=== PATIENT | female | born 1960 | race Caucasian/White ===

== ENCOUNTER 2019-03-09 11:15 | Emergency (ER) | payer OTHER, SELFPAY ==
[2019-03-09 11:28] VITALS: BP 160/88; PULSE 64; RESP 16; O2SAT 99
--- NOTE | 2019-03-09 11:40 | DI.CT_ITS ---
EXAM: CT BRAIN AND NECK CTA CLINICAL HISTORY: neck pain, tingling down L arm, no trauma, r/o dis. TECHNIQUE: Axial CT angiography was performed with multi-slice acquisition and multi-planar and/or 3 D reconstructions. COMPARISON: No exams were available for comparison FINDINGS: A CTA neck: The examination was carried out according to the usual protocol. The common carotid, inte rnal and external carotid arteries are intact. There is no evidence significant stenosis. Note is ma de of degenerative changes involving the cervical spine. CTA of the brain: The anterior, middle and posterior cerebral arteries appear intact. The vertebral basilar system is unremarkable. There is no evidence of an aneurysm. There is no evidence of stenos is.
--- NOTE | 2019-03-09 11:41 | DI.RAD_ITS ---
EXAM: XR CHEST 2V PA AND LATERAL INDICATION: left neck and shoulder pain. COMPARISON: No exams were available for comparison TECHNIQUE: 2D digital imaging was performed. FINDINGS: The lungs are well expanded and free of infiltrate. There is no pleural effusion. The cardiovascular structures are intact. IMPRESSION: No evidence of acute cardiopulmonary disease.
[2019-03-09] MEDS: Lidocaine 5% Patch 1 PATCH TP (11:53)
[2019-03-09] MEDS: Acetaminophen 500 MG TAB 1000 MG PO (11:53)
[2019-03-09] MEDS: Ibuprofen 800 MG TAB PO (11:53)
--- NOTE | 2019-03-09 11:57 | W.ED.GENAD ---
Discharge Plan Disposition Patient Disposition: HOME Condition: Good Discharge Details Chief Complaint: Nk/Back Pain Clinical Impression: Cervicalgia, Muscle spasm, Hand tingling Primary Care Provider: Shanell Miller ED Provider: Steven Hernandez Home Meds and New Rx's Prescriptions: New acetaminophen [Mapap Extra Strength] 500 MG tablet 1,000 mg PO Q6H 5 Days Qty: 60 RF: 0 lidocaine [Lidoderm] 1 PATCH patch 1 patch Topical Q24H Qty: 4 RF: 0 ibuprofen [Motrin IB] 200 MG tablet 600 mg PO Q6H 5 Days Qty: 60 RF: 0 gabapentin [Neurontin] 300 MG capsule 300 mg PO TID Qty: 90 RF: 0 No Action atorvastatin 20 MG tablet 20 mg PO DAILY RF: 0 escitalopram oxalate [Lexapro] 20 MG tablet 20 mg PO DAILY RF: 0 Discharge Instructions Instructions: Muscle Spasm (ED), Neck Pain (ED) Additional Instructions: At this time there is no concerning life-threatening etiology noted on the CT scan. There is a small amount of compression noted on the cervical nerves. This may be improved with the gabapentin. Please continue to take the Tylenol Motrin and Lidoderm patch. Please follow-up with your primary care provider in regards to this for potential reassessment of your cervical spine. If you notice any worsening of your symptoms, or any new symptoms such as vomiting, diarrhea, fever, chills, shortness of breath, chest pain, numbness, weakness, or fainting , please return immediately to the emergency department for reevaluation. Please follow up with your primary care provider as soon as possible for reassessment and reevaluation. As always, it was a pleasure participating in your medical care today. Referrals: Shanell Miller [Primary Care Provider] - Medical Decision Making This is a 58-year-old female with a past medical history of high cholesterol, previous smoking, a family history of cardiac disease only in her grandparents who presents today for evaluation of left neck pain. Is been present for the last week, slightly worsened with movement. Is very atypical for her. She denies any trauma, specific event that caused the symptoms, or other atypical etiology. She also has notable tingling and slight numbness in her left arm that occurred just this morning. She denies any headache or vision changes. She denies any chest pain. Physical exam is notably unremarkable with no bruits, her neurovascular abnormalities. At this time signs and symptoms are slightly atypical, differential does include atypical and unlikely ACS, muscle strain or spasm, also vertebral artery dissection or carotid artery dissection. Her neuro components are certainly atypical, stroke is on the differential but unlikely. We will get a CTA of the head neck for further assessment, treat the patient's pain and reassess. 3 PM Reassessment patient is feeling much better after therapy. She continues to have mild intermittent tingling, but no significant neurologic deficit or evidence of decrease in two-point discrimination. Laboratory work-up is returned benign, troponin and EKG are unremarkable. Chest x-ray is negative for acute process and CTA and CT of the head neck is negative for acute process. Dr. Lee does state that there is mild degeneration noted on C5 and 6 and C6 and 7 with mild arthritis. This may be causing mild compression on the peripheral nerves. With no evidence of dissection, no evidence of atypical ACS, I feel that the patient be safely discharged home. No signs of stroke noted on CT scan. And signs and symptoms are inconsistent with acute infarct. Patient will be discharged home with NSAIDs, Lidoderm patch, gabapentin. Recommended close follow-up with her primary care provider, and potential outpatient neurology follow-up for nerve conduction studies and reassessment. I have extensively reviewed the treatment plan and discharge instructions with the patient and their family. I have addressed all patient concerns at this time. The patient and family was made aware of what symptoms to monitor for that would warrant a return to the emergency department. Discussed the plan with the patient and family, they demonstrate verbal understanding and agreement with our assessment and plan at this time. EKG 11: 45 Rate 63, intervals normal, sinus rhythm, no significant ST elevations or depressions, no T wave inversions. There is a Q wave in lead III. No prior EKG for comparison. No evidence of STEMI FINDINGS: A CTA neck: The examination was carried out according to the usual protocol. The common carotid, internal and external carotid arteries are intact. There is no evidence significant stenosis. Note is made of degenerative changes involving the cervical spine. CTA of the brain: The anterior, middle and posterior cerebral arteries appear intact. The vertebral basilar system is unremarkable. There is no evidence of an aneurysm. There is no evidence of stenosis. FINDINGS: The lungs are well expanded and free of infiltrate. There is no pleural effusion. The cardiovascular structures are intact. IMPRESSION: No evidence of acute cardiopulmonary disease. HPI General Date/Time Provider Initiated Documentation: 03/09/19 11:29. HPI Narrative: 58-year-old female with past medical history of high cholesterol, previous tobacco abuse, for which she quit greater than 5 years ago who presents today for evaluation of left neck pain. Patient states that for the last week she has had mild pain and achiness in her left neck, however this morning it suddenly became worse and she developed burning down her left arm with some mild achiness. Symptoms seem to be made slightly worse by moving the neck in any direction, improved by nothing including NSAIDs. She denies any traumatic event, or significant activity that brought it on initially. She denies any chest pain, shortness of breath, chest tightness, headache, vision changes, numbness tingling or weakness. She denies any previous history of Marfan syndrome, Stephania-Danlos syndrome, polycystic kidney disease, or aneurysm. She denies any previous episodes like this. She has no other complaints at this time. No other modifying factors. Related Data Home Medications Medication Instructions Recorded Confirmed atorvastatin 20 mg PO DAILY tab-cap 09/30/14 03/09/19 escitalopram oxalate [Lexapro] 20 mg PO DAILY 11/03/16 11/03/16 acetaminophen [Mapap Extra 1,000 mg PO Q6H 5 Days #60 tab 03/09/19 Strength] gabapentin [Neurontin] 300 mg PO TID #90 cap 03/09/19 ibuprofen [Motrin Ib] 600 mg PO Q6H 5 Days #60 tab 03/09/19 lidocaine [Lidoderm] 1 patch TOPICAL Q24H #4 patch 03/09/19 Previous Rx's Medication Instructions Recorded acetaminophen [Mapap Extra 1,000 mg PO Q6H 5 Days #60 tab 03/09/19 Strength] gabapentin [Neurontin] 300 mg PO TID #90 cap 03/09/19 ibuprofen [Motrin Ib] 600 mg PO Q6H 5 Days #60 tab 03/09/19 lidocaine [Lidoderm] 1 patch TOPICAL Q24H #4 patch 03/09/19 Allergies Allergy/AdvReac Type Severity Reaction Status Date / Time Penicillins Allergy hives Unverified 03/09/19 11:32 General Stated Complaint: GenMedical ELISSA: 3 Review of Systems Review of Systems ROS Unobtainable: All systems reviewed & are unremarkable except as noted in HPI and below [facility] Surgical History (Updated 04/02/18 @ 14:34 by [place]) Ligation of fallopian tube meniscus repair R knee Family History Father Essential hypertension Dementia Asthma Social History Smoking/Tobacco Use Status: Former Tobacco Use Alcohol Intake: never Drug use: Never Substance use type: does not use Do you feel safe at home: Yes Do you feel safe in your relationship?: Yes Exam Narrative Exam Narrative: 1.Const: Well-nourished, Well-developed, appearing stated age 2.Eyes: PERRL, no conjunctival injection, and symmetrical lids. 3.ENT: Atraumatic external nose and ears. Moist MM. Neck: Symmetric, trachea midline, No thyromegaly. No cervical spine midline tenderness. No carotid or vertebral artery bruits bilaterally. 4.CVS: +S1/S2, No murmurs or gallops. Peripheral pulses 2+ and equal in all extremities. Brisk capillary refill in all extremities. 5.RESP: Unlabored respiratory effort. Clear to auscultation bilaterally. No wheezes rales or rhonchi 6.GI: Soft, Nontender/Nondistended, No hepatosplenomegaly. No guarding or rebound. 7.MSK: Normocephalic/Atraumatic, Extremities w/o deformity or ttp No cyanosis or clubbing, Normal movement of all extremities 8.Skin: Warm, Dry. No rashes or lesions. 9.Neuro: parts coordinator II-XII grossly intact. Sensation grossly intact, no focal neurologic deficits. All 6 cardinal planes of vision are fully intact. No evidence of rotatory or vertical nystagmus. The patient demonstrated a normal [id number], good dexterity. There was no evidence of dysdiadochokinesia. Patient was able to ambulate without difficulty. There was no wide-based gait. Romberg, and [id number] are both normal on testing. Sensation was intact bilaterally as well as muscle strength bilaterally for all extremities. Patient was able to verbalize butter cup with no slurring, or miss pronunciation. No midline tenderness to palpation over the CTLS spine. Normal ROM in flexion, extension, side bend, and rotation. Patient has +5 out of 5 strength in the lower extremities in dorsiflexion and plantarflexion, knee flexion and extension, hip flexion and extension. There is +2 over 2 dorsalis pedis pulses bilaterally. There is normal sensation to the skin with light touch at the foot, knee, and hip. Normal saddle sensation. Good sensation over the deep sural nerve area bilaterally. Rectal exam deferred. Reflexes are +2 over 4 in the patellar reflex bilaterally. +5 out of 5 strength in the medial, ulnar, radial nerve distribution bilaterally in the hands as well as intact light touch sensation to these dermatomes on the hands 10.Psych: (AAO) x3. Appropriate mood and affect Course Vital Signs Vital signs: Vital Signs Pulse 64 03/09/19 11:28 Respiratory Rate 16 03/09/19 11:28 Blood Pressure 160/88 H 03/09/19 11:28 Pulse Oximetry 99 03/09/19 11:28 Pulse 64 03/09/19 11:28 Respiratory Rate 16 03/09/19 11:28 Respiratory Effort Non-Labored 03/09/19 11:55 Blood Pressure 160/88 H 03/09/19 11:28 Blood Pressure Position Sitting 03/09/19 11:28 Pulse Oximetry 99 03/09/19 11:28
[2019-03-09 12:25] LABS: Abs Immature Grans 0.01 k/cumm (0.0-0.09); Absolute Basophil Count 0.04 k/cumm (0.0-0.2); Absolute Eosinophil Count 0.11 k/cumm (0.0-0.7); Absolute Lymphocyte Count 1.65 k/cumm (1.2-3.4); Absolute Neutrophil Count 5.05 k/cumm (1.2-6.7); Basophils % 0.6; Eosinophils % 1.5; HCT 42.4 % (36.0-46.0); Immature Grans % 0.1; Mean Corpuscular Hemoglobin 30.6 pg (27.0-33.0); Mean Corpuscular Volume 92.6 fL (80-95); Mean Platelet Volume 10.3 fL (8.0-11.0); Monocytes % 4.2; Neutrophils % 70.6; Platelet Count 275 x1000/uL (130-400); RBC 4.58 m/cumm (4.00-5.20); RBC Distribution Width 13.7 % (11.7-14.6); White Blood Cell Count 7.16 k/cumm (4.4-10.8)
[2019-03-09 12:39] LABS: INR 1.1 (0.9-1.1); PTT Activated 28.6 sec (21.0-31.4); Prothrombin Time 11.2 sec (9.3-11.0)
[2019-03-09 12:40] LABS: ALT 32 U/L (14-59); AST 22 U/L (15-37); Albumin 3.9 g/dL (3.4-5.0); Alkaline Phosphatase 96 U/L (46-116); Anion Gap 10.1 mmol/L (3-11); BUN 16 mg/dL (7-18); Bilirubin, Total 0.4 mg/dL (0.2-1.0); CO2 25.9 mmol/L (21.0-32.0); CREATININE 0.77 mg/dL (0.55-1.02); Chloride 107 mmol/L (98-107); Glucose 124 mg/dL (70-100); Potassium 3.8 mmol/L (3.5-5.1); Sodium 143 mmol/L (136-145); Total Protein 7.3 g/dL (6.4-8.2)
[2019-03-09 12:44] LABS: Troponin I < 0.05 ng/mL (0.00-0.06)
[2019-03-09] MEDS: Omnipaque 350 MG/ML 100 ML BTL IJ (13:45)
[2019-03-09 14:34] VITALS: BP 126/82; PULSE 67; RESP 16; O2SAT 100
[2019-03-09 15:45] VITALS: BP 136/91; PULSE 69; RESP 15; TEMP 36.6; O2SAT 99
== END 2019-03-09 15:47 | disposition home or self-care (01) ==
PROVIDERS: Emergency Provider Student in an Organized Health Care Education/Training Program; PCP Nurse Practitioner
DX: M54.2 Cervicalgia (principal); M62.838 Other muscle spasm; R20.2 Paresthesia of skin
CPT/HCPCS: 36415; 70496; 70498; 80053; 93005; 99285; 71046; 84484; 85025; 85610; 85730; 93010; J3490

== ENCOUNTER 2019-04-06 14:59 | Outpatient (REF) | payer OTHER, SELFPAY ==
--- NOTE | 2019-04-06 | SKI_PTH ---
PATIENT: Anu Pena LOC: [facility] U#:[id number] AGE/SX: 58/F ROOM: RE04/06/[address]: Tyler Swan DO : 1960 BED: DIS: 04/06/2019 SPEC #: [id number] RECD: 04/06/19 18:11 STATUS: SHERLY REQ #: [id number] DEVONTE: 04/06/19 00:[address]: Tyler Swan DEPT: Surgical Specimen RECD BY: Trang Naranjo ENTERED: 04/06/19 18:12 SP TYPE: VEE HAWTHORNE DR: Shanell Miller Logan Tissues: 1 - SKIN BIOPSY(SHAVE/PUNCH) Procedures: SKIN LEVEL 4 Comments: [id number]
== END 2019-04-06 15:19 ==
LOC: LBN 14:59
PROVIDERS: PCP Nurse Practitioner; Visit Provider Otolaryngology Otolaryngology/Facial Plastic Surgery
DX: L82.1 Other seborrheic keratosis (principal)
CPT/HCPCS: 88305

== ENCOUNTER 2019-09-01 12:20 | Outpatient (REF) | payer OTHER, SELFPAY ==
[2019-09-01 13:53] LABS: Calculated LDL 94 mg/dL (<100); Cholesterol 167 mg/dL (<200); Glucose 85 mg/dL (74-106); HDL Cholesterol 39 mg/dL (40-60); Triglyceride 172 mg/dL (<150)
[2019-09-01 14:00] LABS: Hemoglobin A1C 5.8 % (3.8-5.6)
== END 2019-09-01 12:40 ==
LOC: NCHCN 12:20
PROVIDERS: PCP Nurse Practitioner; Visit Provider Nurse Practitioner
DX: E78.5 Hyperlipidemia, unspecified (principal); R73.9 Hyperglycemia, unspecified
CPT/HCPCS: 80061; 82947; 83036

== ENCOUNTER 2020-04-19 16:14 | Outpatient (REF) | payer OTHER, SELFPAY ==
[2020-04-19 18:48] LABS: ALT 30 U/L (14-59); AST 22 U/L (15-37); Albumin 4.4 g/dL (3.4-5.0); Alkaline Phosphatase 118 U/L (46-116); Anion Gap 8.9 mmol/L (3-11); BUN 15 mg/dL (7-18); Bilirubin, Total 0.6 mg/dL (0.2-1.0); CO2 25.1 mmol/L (21.0-32.0); CREATININE 0.77 mg/dL (0.55-1.02); Calcium 8.8 mg/dL (8.5-10.1); Calculated LDL 89 mg/dL (<100); Chloride 104 mmol/L (98-107); Cholesterol 190 mg/dL (<200); Glucose 92 mg/dL (74-106); HDL Cholesterol 41 mg/dL (40-60); Potassium 3.9 mmol/L (3.5-5.1); Sodium 138 mmol/L (136-145); Total Protein 7.3 g/dL (6.4-8.2); Triglyceride 303 mg/dL (<150)
[2020-04-19 18:52] LABS: Hemoglobin A1C 5.5 % (<5.7)
[2020-04-22 15:14] LABS: CRP, High Sensitivity 0.8 mg/L
== END 2020-04-19 16:34 ==
LOC: NCHCN 16:14
PROVIDERS: PCP Nurse Practitioner; Visit Provider Nurse Practitioner
DX: R73.03 Prediabetes (principal); E78.5 Hyperlipidemia, unspecified
CPT/HCPCS: 80053; 80061; 86141; 83036

== ENCOUNTER 2020-05-11 00:17 | Outpatient (CLI) | payer OTHER, SELFPAY ==
--- NOTE | 2020-05-11 15:50 | DI.MAMMO_ITS ---
EXAM: MG MAMMO SCREENING CLINICAL HISTORY: SCREENING, Z12.39 TECHNIQUE: Mammograms were interpreted according to the usual protocol including computer analysis w The Rounds CAD system, tomosynthesis and C-view imaging. COMPARISON: FINDINGS: The breasts are heterogeneously dense. There are multiple focal areas of asymmetric density seen maik aterally. Comparison with multiple previous examinations including April 2017 shows no significan t interval change in appearance in comparison with the prior studies. There is no dominant mass or c lumped microcalcification. IMPRESSION: No specific evidence of malignancy at this time. Routine screening examinations are suggested at yea rly intervals in this age group according to the ACS ACR guidelines. BI-RADS Category 1 - Negative Breast Density - Category C - Heterogeneously dense
== END 2020-05-11 00:37 ==
PROVIDERS: PCP Nurse Practitioner; Visit Provider Nurse Practitioner
DX: Z12.31 Encounter for screening mammogram for malignant neoplasm of breast (principal)
CPT/HCPCS: 77063; 77067

== ENCOUNTER 2021-09-15 09:36 | Outpatient (REF) | payer OTHER, SELFPAY ==
[2021-09-15 16:06] LABS: Hemoglobin A1C 5.7 % (<5.7)
[2021-09-15 16:13] LABS: Anion Gap 7.3 mmol/L (3-11); BUN 17 mg/dL (7-18); CO2 25.7 mmol/L (21.0-32.0); CREATININE 0.8 mg/dL (0.55-1.02); Calcium 8.8 mg/dL (8.5-10.1); Calculated LDL 94 mg/dL (<100); Chloride 106 mmol/L (98-107); Cholesterol 175 mg/dL (<200); Glucose 88 mg/dL (74-106); HDL Cholesterol 39 mg/dL (40-60); Potassium 3.9 mmol/L (3.5-5.1); Sodium 139 mmol/L (136-145); Triglyceride 212 mg/dL (<150)
== END 2021-09-15 09:37 | disposition home or self-care (01) ==
LOC: NCHCN 09:36
PROVIDERS: PCP Nurse Practitioner; Visit Provider Physician Assistant
DX: E78.5 Hyperlipidemia, unspecified (principal); R73.03 Prediabetes
CPT/HCPCS: 80048; 80061; 83036

== ENCOUNTER 2021-10-13 01:53 | Outpatient (CLI) | payer OTHER, SELFPAY | END 2021-10-13 01:54 | disposition home or self-care (01) | LOC: LBO 01:53 | PROVIDERS: PCP Nurse Practitioner; Visit Provider Nurse Practitioner Family ==

== ENCOUNTER 2022-04-30 16:44 | Outpatient (REF) | payer OTHER, SELFPAY ==
--- NOTE | 2022-04-30 15:45 | PAPFT_PTH ---
PATIENT: Anu Pena LOC: [facility] U#:[id number] AGE/SX: 61/F ROOM: RE04/30/[address]: Annabel Conner NP : 1960 BED: DIS: 04/30/2022 SPEC #: [id number] RECD: 04/30/22 17:22 STATUS: SHERLY REQ #: [id number] DEVONTE: 04/30/22 15:[address]: Ubaldo YORK,Annabel DEPT: [facility] Cytology RECD BY: Trang Naranjo ENTERED: 04/30/22 17:22 SP TYPE: PAPFT OTHR DR: Shanell Miller Tissues: 1 - CX/ENDOCX FOR PAP SMEARS Procedures: PAP THIN PREP/U[facility] Screening HPV DNA PROBE Comments:
== END 2022-04-30 16:45 | disposition home or self-care (01) ==
LOC: LBN 16:44
PROVIDERS: PCP Nurse Practitioner; Visit Provider Nurse Practitioner Women's Health
DX: Z12.4 Encounter for screening for malignant neoplasm of cervix (principal); Z11.51 Encounter for screening for human papillomavirus (HPV)
CPT/HCPCS: 88142; 87624

== ENCOUNTER → 2022-06-06 01:09 | Outpatient (CLI) | payer OTHER, SELFPAY ==
--- NOTE | 2022-06-06 17:45 | DI.MAMMO_ITS ---
Exam(s) MAMMO SCREENING EXAM: MAMMO SCREENING CLINICAL HISTORY: screening. TECHNIQUE: Bilateral full field digital CC and MLO mammographic images were obtained with 3D tomosyn thesis and utilizing computer aided detection (CAD). COMPARISON: Prior mammograms were reviewed. FINDINGS: There has been no significant change in the appearance and distribution of the fibroglandular tissue. There are no new spiculated masses nor malignant appearing microcalcification groups. There is no significant architectural distortion nor skin thickening-retraction. IMPRESSION: No radiographic evidence of malignancy. BI-RADS Category 1 - Negative Breast Density - Category C - Heterogeneously dense Breast density Category C or D implies that the patient has dense breast tissue. Dense breast tissue can make it harder to find cancer on a mammogram. Dense breast tissue is also associated with an incr eased risk of breast cancer. This information about the result of the mammogram report was provided to the patient to raise their awareness. Use this report when you speak with the patient about their risks for breast cancer, which includes their family history. At that time, you may recommend additional screening tests (Ultrasoun d or MRI) as these tests may add significant information. A negative radiographic report should not delay biopsy if a dominant or clinically suspicious mass is present. Up to ten percent of cancers are not identified on mammography. A negative report may reinforce clinical impression. Adenosis and dense breasts may obscure an underlying neoplasm. False positive reports average 6 to 10%. Patient will receive a letter notifying them of these results.
== END ==
PROVIDERS: PCP Physician Assistant; Visit Provider Nurse Practitioner Women's Health
DX: Z12.31 Encounter for screening mammogram for malignant neoplasm of breast (principal); R92.8 Other abnormal and inconclusive findings on diagnostic imaging of breast
CPT/HCPCS: 77063; 77067

== ENCOUNTER 2022-08-13 17:23 | Outpatient (REF) | payer OTHER, SELFPAY ==
[2022-08-13 17:57] LABS: ALT 32 U/L (14-59); AST 24 U/L (15-37); Albumin 4.1 g/dL (3.4-5.0); Alkaline Phosphatase 120 U/L (46-116); Anion Gap 10.6 mmol/L (3-11); BUN 13 mg/dL (7-18); Bilirubin, Total 0.5 mg/dL (0.2-1.0); CO2 25.4 mmol/L (21.0-32.0); CREATININE 0.8 mg/dL (0.55-1.02); Calcium 9.6 mg/dL (8.5-10.1); Calculated LDL 113 mg/dL (<100); Chloride 106 mmol/L (98-107); Cholesterol 201 mg/dL (<200); Estimated GFR 83.78 (mL/min/1.73m2); Glucose 96 mg/dL (74-106); HDL Cholesterol 47 mg/dL (40-60); Sodium 142 mmol/L (136-145); Total Protein 7.6 g/dL (6.4-8.2); Triglyceride 205 mg/dL (<150)
[2022-08-13 18:26] LABS: Hemoglobin A1C 5.5 % (<5.7)
== END 2022-08-13 17:24 | disposition home or self-care (01) ==
LOC: NCHCN 17:23
PROVIDERS: PCP Physician Assistant; Visit Provider Physician Assistant
DX: R73.03 Prediabetes (principal); E78.5 Hyperlipidemia, unspecified
CPT/HCPCS: 80053; 80061; 83036

== ENCOUNTER 2023-03-21 06:16 | Day surgery (SDC) | payer OTHER, SELFPAY ==
--- NOTE | 2023-03-20 13:39 | W.PM.DSUDISC ---
Date of service: 03/21/23 Time of Service: 08:00 Discharge Plan Disposition Patient Disposition: Home Condition: Good Discharge Details Reason For Visit: Screening colonoscopy Attending Provider: Cooper Castro Primary Care Provider: Tyler Galindo Home Meds and New Rx's Prescriptions: No Action atorvastatin 10 mg tablet 10 mg PO QPM Discharge Instructions Instructions: Diverticulosis (GEN), Diverticulosis Diet (GEN), Colorectal Polyps (GEN) Additional Instructions: Anu, we were able to complete your colonoscopy today without any difficulty. You do have some diverticulosis. Diverticula are weak spots in the colon wall. They can become infected, and when that happens, patients typically experience a lot of pain, usually on the left side of their abdomen or lower across the mid. Patients usually have fevers and feel pretty ill during those x2. In those cases, diverticulitis should be treated with antibiotics. I will attach some general information here regarding typical management of diverticular disease. He also had 3 small polyps. I removed these. Hopefully, they will just be what are called hyperplastic polyps. If that is the case, you will need your next colonoscopy in 10 years. If there are any other types of polyps, we will need to shorten that interval. Once I have that information I will be in touch. 1. If tolerated, consume a soft, low fiber diet for 1-2 days. 2[address] Do not drive, drink alcohol, operate machinery, make critical decisions, or do activities that require coordination or balance for 24 hours. 3. Because air was put into your colon during the procedure, expelling air from your rectum (passing gas or farting) is normal. 4. You may not have a bowel movement for 1-3 days because of the colonoscopy prep. This is normal. 5. Go directly to the emergency room if you notice any of the following: Develop chills (warm to touch), or if you have a thermometer and your temperature is above 101 Difficulty breathing or difficultly swallowing Persistent vomiting Severe abdominal pain, other than gas cramps Severe chest pain Black, tarry stools Any bleeding ? exceeding one tablespoon 6. Call your physician if the site where your intravenous was started becomes red, swollen, painful, and warm to touch. 7. Your physician has reviewed your pre-procedure medications. Please continue to take those medications as previously ordered. You will be given specific information/education regarding any changes to your medications before leaving. Activity:: Activity as Tolerated Diet:: As Tolerated Discharge Orders Discharge Orders: Discharge Order (Routine); Ordered 03/20/23 Ordered By: Cooper Castro DS: Diagnosis Discharge Diagnosis (1) Screen for colon cancer: Status: Acute Asessment and Plan: I will follow-up on polypectomy results
--- NOTE | 2023-03-20 13:40 | W.COLOREPORT ---
Date of service: 03/21/23 Time of Service: 08:03 Colonoscopy Report Date of procedure: 03/21/23 Pre-op diagnosis general: Screening colonoscopy Post-op diagnosis procedure note: other (Diverticulosis, rectal polyps) Procedure: Colonoscopy with polypectomy Surgeon: Cooper Castro Anesthesia Type: General:No Airway Estimated blood loss (mL): 5 Pathology: other (Rectal polyps x3) Complications: None Disposition: same day Indications: Anu is 62 years old. She is here for her screening colonoscopy. She had a last colonoscopy 10 years ago which was normal. Prep: Miralax/Dulcolax Procedure Start Time: 07:29 Procedure End Time: 07:46 Retraction Time: 13 Findings: Diverticulosis, rectal polyps x3 Procedure Description: After the induction of monitored anesthetic care, and with the patient in left lateral decubitus position, I began by performing an external anorectal exam.? Perineum and skin were normal, as was the anal verge.? There were no significant external hemorrhoids.? Next, I performed a digital rectal exam.? I did not appreciate any abnormal findings.? Next, I advanced a colonoscope into the rectal vault.? I performed retroflexion.? This was normal.? Using insufflation, I then advanced the colonoscope beyond the rectal folds and into the sigmoid colon before advancing towards the cecum.? The quality of the prep was excellent.? There were some diverticula, mostly centered in the sigmoid colon. The scope was noted to be in the cecum by identification of the ileocecal valve and appendiceal orifice.? I then began withdrawing the colonoscope using repeated irrigation as necessary for full evaluation of the colonic mucosa. ?Once the scope was withdrawn to the level of the rectum, great care was taken to examine portions of the rectal folds. Within the upper portion of the rectal vault were 3 small polyps. All were sessile. All were less than 0.25 cm. I removed these with cold forceps polypectomy. There was minimal bleeding. Finally, the scope was withdrawn and the patient was brought to the same-day surgery recovery unit as the anesthetic wore off. ?The findings and instructions were shared with the patient prior to discharge.
[2023-03-21 06:23] VITALS: BP 150/90; PULSE 70; RESP 17; TEMP 36.4; O2SAT 99
[2023-03-21] MEDS: Lactated Ringers 1,000 ML 80 ML IV (06:37)
--- NOTE | 2023-03-21 07:11 | W.ANESPRE ---
General Info Date of Service Date Performed: 03/21/23 Height: 5 ft 2 in Weight: 70.2 kg Body Mass Index (BMI): 28.3 Surgical Procedure: j Operation Date: 03/21/23 07:35 Proposed Procedure Side Surgeon p Colonoscopy Cooper Castro MD Meds Allergies and Home Medications Allergies Allergy/AdvReac Type Severity Reaction Status Date / Time Penicillins Allergy hives Verified 03/21/23 06:28 Home Medication Medication Instructions Recorded atorvastatin 10 mg tablet 10 mg PO QPM 11/22/22 Current Visit Medications: Current Medications Generic Name Dose Route Start Last Admin Trade Name Freq PRN Reason Stop Dose Admin Hyoscyamine Sulfate 0.125 mg 03/20/23 13:41 Hyoscyamine 0.125 Mg Sl/Oral/Chew SL 04/19/23 13:40 DIRECTED PRN Ringer's Solution 1,000 mls @ 80 mls/hr 03/21/23 06:00 03/21/23 06:37 IV 04/19/23 23:59 80 mls/hr INFUSION HERMELINDA Administration IV Miscellaneous Supplies 1 each 03/21/23 06:00 Iv Access IV 04/19/23 23:59 DIRECTED HERMELINDA Ondansetron HCl 4 mg 03/20/23 13:41 Ondansetron 4 Mg/2 Ml Vial IVP 04/19/23 13:40 Q4H PRN PRN Nausea / Vomiting Sodium Chloride 0 ml 03/21/23 06:00 Normal Saline Flush 10 Ml Syr IV 04/19/23 23:59 PRN PRN Sodium Chloride 0 ml 03/21/23 06:00 Normal Saline 10 Ml Vial IJ 04/19/23 23:59 DIRECTED PRN Sterile Water 0 ml 03/21/23 06:00 Water,Injection,Sterile 10 Ml Vial IJ 04/19/23 23:59 DIRECTED PRN PFSH Active Problems Active Problems: Problem Status Onset Code Screen for colon cancer Z12.11 Elevated lipids 04/11/17 E78.5 Postmenopausal atrophic vaginitis N95.2 Medical History Medical History Depression (04/11/17) Erythema Right lower leg Former smoker History of blood clots Neoplasm of unspecified behavior of bone, soft tissue, and skin Osteoarthritis Pain in right lower leg Prediabetes Varicose veins of right lower extremity Surgical History Surgical History History of vascular surgery hx of saphenous vein removal 11/22/22 Ligation of fallopian tube meniscus repair R knee Tobacco Smoking/Tobacco Use Status: Former Tobacco Use Alcohol Alcohol Intake: never Substance Use Substance use: Never Substance use type: does not use Prental History History 3 Para 3 Hx # Term Pregnancies Multiple births Hx # Pregnancies Ectopic pregnancies AB induced Hx Number of Living Children AB spontaneous Vital Signs and Lab Results Vital Signs Most Recent Vital Signs in EMR: Most Recent Vital Signs Temp Pulse Resp BP Pulse Ox 36.4 C L 70 17 150/90 H 99 03/21/23 06:23 03/21/23 06:23 03/21/23 06:23 03/21/23 06:23 03/21/23 06:23 Lab Results Blood Type / Crossmatch: No Data to Display Complete Blood Count: No Data to Display Complete Metabolic Panel: No Data to Display Liver Function Panel: No Data to Display Coagulation Panel: No Data to Display Cardiac Panel: No Data to Display Arterial Blood Gas: No Data to Display Venous Blood Gas: No Data to Display Pancreas Panel: No Data to Display Thyroid Panel: No Data to Display Infectious Disease: No Data to Display Blood Cultures: No Data to Display Toxicology Panel: No Data to Display Anesthesia Assessment and Plan Anesthesia History Personal History: PONV Family History: No Family History of Anesthesia Complications Exercise Tolerance Exercise Tolerance: Metabolic Equivalents>4 Pertinent Negatives Pertinent Negatives: No Symptoms of GERD, No Major Cardiovascular Symptoms or Complaints, No Major Pulmonary Symptoms or Complaints and No History of CVA/TIA Cardiac & Pulmonary Exam Cardiac Exam: Normal S1/S2 Heart Sounds Pulmonary Exam: Clear Bilateral Breath Sounds Implantable Cardiac Device Does patient have a Pacemaker or an ICD?: No Airway Exam Known Difficult Airway: No Mallampati Class: 1 Mouth Opening: Normal (> 3cm) Thyromental Distance: Greater than 3 cm Neck Range of Motion: Full ROM Neck Circumference: Normal Teeth Condition: Normal Dentition and Removable Dentures/Plates Lower ASA Classification ASA Score: ASA 2 Emergency Case?: No NPO Status NPO Status: NPO Clears >2 hours, Solids >8 hours Anesthesia Plan Resuscitation Status: Full Code Anesthesia Technique: General Anesthesia Airway Planned: Natural Airway Monitors Used: Standard Monitors
[2023-03-21 07:14] VITALS: BMI 28.3
--- NOTE | 2023-03-21 07:43 | BOWEL_PTH ---
PATIENT: Anu Pena LOC: [facility] U#:[id number] AGE/SX: 62/F ROOM: RE03/21/[address]: Cooper Castro MD : 1960 BED: DIS: 03/21/2023 SPEC #: [id number] RECD: 03/21/23 12:24 STATUS: SHERLY REQ #: [id number] DEVONTE: 03/21/23 07:[address]: Cooper Castro DEPT: Surgical Specimen RECD BY: Trang Naranjo ENTERED: 03/21/23 12:25 SP TYPE: Bowel OTHR DR: Tyler Galindo Tissues: 1 - BIOPSY BOWEL Procedures: GROSS AND MICRO LEVEL 4 Comments: [id number]
[2023-03-21 07:52] VITALS: BP 112/70; PULSE 73; RESP 15; TEMP 36.3; O2SAT 93
--- NOTE | 2023-03-21 08:07 | W.ANESPOSTOP ---
Postoperative Evaluation Date, Time and Location Date Performed: 03/21/23 Time Performed: 08:02 Patient Location: Day Surgery Unit Vital Signs Most Recent Imported Vital Signs: Most Recent Vital Signs Temp Pulse Resp BP Pulse Ox 36.3 C L 73 15 112/70 93 03/21/23 07:52 03/21/23 07:52 03/21/23 07:52 03/21/23 07:52 03/21/23 07:52 Pain Score Most Recent Pain Score: Most Recent Pain Score Pain Level 0 03/21/23 07:52 Assessment Mental Status: Awake (Alert & Oriented to Patient Baseline) Airway and Respiratory Function: Patent airway with normal (patient baseline) respiratory exam Cardiovascular Function: Hemodynamically Stable Hydration Status: Adequately Hydrated Nausea & Vomiting: No Nausea or Vomiting Pain: Pt. Denies Any Pain Peripheral Nerve Block: Patient did not receive a nerve block
[2023-03-21 08:17] VITALS: BP 120/86; PULSE 72; RESP 16; TEMP 36.3; O2SAT 95
== END 2023-03-21 08:35 | disposition home or self-care (01) ==
PROVIDERS: PCP Physician Assistant; Visit Provider Surgery
PROC: 0DJD8ZZ Inspection of Lower Intestinal Tract, Via Natural or Artificial Opening Endoscopic (ICD-10-PCS; CPT 45378; principal; 2023-03-21 07:30)
DX: Z12.11 Encounter for screening for malignant neoplasm of colon (principal); K62.1 Rectal polyp; K57.30 Diverticulosis of large intestine without perforation or abscess without bleeding
CPT/HCPCS: 45380; 88305; J2405

== ENCOUNTER 2023-07-12 11:30 | Outpatient (REF) | payer OTHER, SELFPAY ==
[2023-07-12 15:47] LABS: HCT 42.6 % (36.0-46.0); HGB 14.1 g/dL (11.2-15.7); MCH 29.6 pg (27.0-33.0); MCHC 33.1 % (32.0-36.0); MCV 90 fL (80-95); MPV 10.7 fL (8.0-11.0); Platelet Count 234 10^3/uL (130-400); RBC 4.76 10^6/uL (3.93-5.22); RDW 13.8 % (11.7-14.6); RDW-SD 45.2 fL; WBC 7.52 10^3/uL (4.4-10.8)
[2023-07-12 16:05] LABS: ALT 36 U/L (14-59); AST 23 U/L (15-37); Albumin 4.2 g/dL (3.4-5.0); Alkaline Phosphatase 128 U/L (46-116); Anion Gap 10.3 mmol/L (3-11); BUN 13 mg/dL (7-18); Bilirubin, Total 0.7 mg/dL (0.2-1.0); CO2 26.7 mmol/L (21.0-32.0); CREATININE 0.8 mg/dL (0.55-1.02); Calcium 9.6 mg/dL (8.5-10.1); Calculated LDL 108 mg/dL (<100); Chloride 104 mmol/L (98-107); Cholesterol 187 mg/dL (<200); Estimated GFR 83.26 (mL/min/1.73m2); Glucose 90 mg/dL (74-106); HDL Cholesterol 45 mg/dL (40-60); Potassium 4.1 mmol/L (3.5-5.1); Sodium 141 mmol/L (136-145); Total Protein 7.4 g/dL (6.4-8.2); Triglyceride 170 mg/dL (<150)
== END 2023-07-12 11:31 | disposition home or self-care (01) ==
LOC: NCHCN 11:30
PROVIDERS: PCP Physician Assistant; Visit Provider Physician Assistant
DX: E78.5 Hyperlipidemia, unspecified (principal)
CPT/HCPCS: 80053; 80061; 85027

== ENCOUNTER → 2023-08-15 04:36 | Outpatient (CLI) | payer OTHER, SELFPAY ==
--- NOTE | 2023-08-15 | DI.DEXA_ITS ---
Exam(s) XR DEXA BONE DENSITY W/WO KAYLAH EXAM: XR DEXA BONE DENSITY W/WO KAYLAH CLINICAL HISTORY: SCREENING FOR OSTEOPOROSIS, Z13.820 TECHNIQUE: COMPARISON: No exams were available for comparison FINDINGS: Lateral Spine Image: Unremarkable. No compression deformities identified. Left hip: Total T-Score: -1.8 Total Z-Score: -0.7 T- and Z-scores: Findings are consistent with osteopenia. There is osteoporosis in the femoral neck with a T-score of -2.5. Lumbar Spine: Total T-Score: -2.0 Total Z-Score: -0.4 T- and Z-scores: Findings are consistent with osteopenia. There is osteoporosis seen in the L3 verte bral body with T-score of -2.5. IMPRESSION: Osteoporosis seen in the left femoral neck and in the lumbar spine as described above.
== END ==
PROVIDERS: PCP Physician Assistant; Visit Provider Physician Assistant
DX: Z13.820 Encounter for screening for osteoporosis (principal); M81.0 Age-related osteoporosis without current pathological fracture
CPT/HCPCS: 77080

== ENCOUNTER 2023-10-03 18:28 | Emergency (ER) | payer OTHER, SELFPAY ==
[2023-10-03 18:29] VITALS: BP 144/88; PULSE 98; RESP 16; TEMP 37.7; O2SAT 97
[2023-10-03 18:51] LABS: Abs Immature Grans 0.03 10^3/uL (0.0-0.06); Absolute Basophil Count 0.08 10^3/uL (0.0-0.2); Absolute Monocyte Count 0.87 10^3/uL (0.1-0.8); Basophils % 0.6; Eosinophils % 1.1; HCT 43.6 % (36.0-46.0); HGB 14.8 g/dL (11.2-15.7); Immature Grans % 0.2; Lymphocytes % 14.7; MCH 30.5 pg (27.0-33.0); MCHC 33.9 % (32.0-36.0); MCV 90 fL (80-95); MPV 9.7 fL (8.0-11.0); Monocytes % 6.2; Neutrophils % 77.2; Platelet Count 294 10^3/uL (130-400); RBC 4.86 10^6/uL (3.93-5.22); RDW 13.6 % (11.7-14.6); RDW-SD 44.3 fL; WBC 14.04 10^3/uL (4.4-10.8)
[2023-10-03] MEDS: Normal Saline 1,000 ML 1000 ML IV (18:53)
[2023-10-03 18:54] LABS: Absolute Eosinophil Count 0.15 10^3/uL (0.0-0.7); Absolute Lymphocyte Count 2.06 10^3/uL (1.2-3.4); Absolute Neutrophil Count 10.84 10^3/uL (1.2-6.7)
[2023-10-03] MEDS: Ondansetron 4 MG/2 ML VIAL IVP (18:54)
--- NOTE | 2023-10-03 18:59 | W.ED.GENAD ---
Discharge Plan Disposition Patient Disposition: Home Condition: Stable Discharge Details Clinical Impression: Diverticulitis Primary Care Provider: Tyler Galindo ED Provider: Radha Murcia Home Meds and New Rx's Prescriptions: New ciprofloxacin HCl 500 mg Tablet 500 mg PO BID 12 Days Qty: 24 0RF metronidazole 500 mg Tablet 500 mg PO TID 12 Days Qty: 36 0RF Continued atorvastatin 10 mg tablet 10 mg PO QPM alendronate 70 mg tablet PO Discharge Instructions Instructions: Diverticulitis (ED), Diverticulitis Diet (ED) Additional Instructions: I encourage you to call MICHAEL Kincaid to schedule a follow-up appointment for early next week for reassessment of diverticulitis/colitis. I encourage you to talk about the findings on your CT scan, including bowel wall thickening and incidental finding of a likely ovarian cyst that should be evaluated with ultrasound. I also encourage you to follow-up with Dr. Castro, general surgeon to discuss the finding of bowel wall thickening on CT scan and further evaluation. I have prescribed for you antibiotics to help treat diverticulitis/colitis. Please take the full course as prescribed. You may also be helpful to use probiotics to prevent antibiotic associated diarrhea. For the first 2 days, I encourage you to keep to a clear liquid diet to help with bowel rest. You may use Tylenol if needed for discomfort. Return to emergency care if you develop black/tarry stools, vomiting, severe abdominal pain, fevers associated w/ abdominal pain, or if you are very worried and need to be rechecked again immediately Referrals: Tyler Galindo [Primary Care Provider] - Cooper Castro MD [ [facility] STAFF PHYSICIAN] - [facility] General Date/Time Provider Initiated Documentation: 10/03/23 18:30. HPI Narrative: Anu is a 63 year old female who presents to the emergency department today at the recommendation of [facility] for evaluation of lower abdominal pain. She reports she started with left lower quadrant pain around 10 AM this morning, it is a sharp pain as intermittent to the left lower quadrant, radiating around her waist and across to the right lower quadrant. She denies associated fever/chills, nausea/vomiting, change in bowel or bladder function, dysuria, black/tarry stools, unusual vaginal bleeding or discharge. Last BM yesterday, normal. Pain is not associated to meals or bumps in the road. She is up-to-date for colonoscopy, says that she was found to have diverticula, no history of diverticulitis. She does have an allergy to penicillin, no history of antibiotic resistance or immunocompromise. No history of abdominal surgeries. No recent contacts with similar symptoms. Related Data Home Medications Medication Instructions Recorded Confirmed atorvastatin 10 mg tablet 10 mg PO QPM 11/22/22 10/03/23 alendronate 70 mg tablet mg PO 10/03/23 ciprofloxacin HCl 500 mg tablet 500 mg PO BID 12 days #24 tabs 10/03/23 metronidazole 500 mg tablet 500 mg PO TID 12 days #36 tabs 10/03/23 Previous Rx's Medication Instructions Recorded ciprofloxacin HCl 500 mg tablet 500 mg PO BID 12 days #24 tabs 10/03/23 metronidazole 500 mg tablet 500 mg PO TID 12 days #36 tabs 10/03/23 Allergies Allergy/AdvReac Type Severity Reaction Status Date / Time Penicillins Allergy hives Verified 10/03/23 18:34 General Stated Complaint: Abd Prob ELISSA: 3 Review of Systems Narrative: see HPI Exam Const General: cooperative, healthy appearing, comfortable, no acute distress and well developed Nutritional Appearance: average body habitus Resp Effort & Inspection: normal respiratory effort and able to speak in complete sentences Auscultation: clear to auscultation bilaterally Cardio Rate: regular rate Rhythm: regular rhythm GI Inspection: normal to inspection Palpation: soft, not firm, no guarding, no masses and tender in the LLQ; with no rebound tenderness Auscultation: normal bowel sounds Course Vital Signs Vital signs: Vital Signs Temperature 37.7 C H 10/03/23 18:29 Pulse 98 H 10/03/23 18:29 Respiratory Rate 16 10/03/23 18:29 Blood Pressure 144/88 H 10/03/23 18:29 Pulse Oximetry 97 10/03/23 18:29 Temperature 37.7 C H 10/03/23 18:29 Pulse 98 H 10/03/23 18:29 Respiratory Rate 16 10/03/23 18:29 Respiratory Effort Normal 10/03/23 18:33 Blood Pressure 144/88 H 10/03/23 18:29 Pulse Oximetry 97 10/03/23 18:29 Oxygen Delivery Method Room Air 10/03/23 18:29 Oxygen Flow Rate 0 10/03/23 18:29 Pain Level 7 10/03/23 18:29 Lab/Test Results Lab/Test Results: Laboratory Tests Range/Units 10/03/23 15:45 WBC (4.4-10.8) 10^3/uL 14.04 H RBC (3.93-5.22) 10^6/uL 4.86 Hgb (11.2-15.7) g/dL 14.8 Hct (36.0-46.0) % 43.6 MCV (80-95) fL 90 MCH (27.0-33.0) pg 30.5 MCHC (32.0-36.0) % 33.9 RDW (11.7-14.6) % 13.6 Plt Count (130-400) 10^3/uL 294 MPV (8.0-11.0) fL 9.7 Immature Gran % 0.2 Neutrophils % 77.2 Lymphocytes % 14.7 Monocytes % 6.2 Eosinophils % 1.1 Basophils % 0.6 Nucleated RBC % (0.0-0.3) % 0.0 Absolute Neutrophils (1.2-6.7) 10^3/uL 10.84 H Absolute Lymphocytes (1.2-3.4) 10^3/uL 2.06 Absolute Monocytes (0.1-0.8) 10^3/uL 0.87 H Absolute Eosinophils (0.0-0.7) 10^3/uL 0.15 Absolute Basophils (0.0-0.2) 10^3/uL 0.08 Medical Decision Making nAu is a 63 year old female who presents to the emergency department today at the recommendation of [facility] for evaluation of lower abdominal pain. She reports she started with left lower quadrant pain around 10 AM this morning, it is a sharp pain as intermittent to the left lower quadrant, radiating around her waist and across to the right lower quadrant. She denies associated fever/chills, nausea/vomiting, change in bowel or bladder function, dysuria, black/tarry stools, unusual vaginal bleeding or discharge. Last BM yesterday, normal. Pain is not associated to meals or bumps in the road. She is up-to-date for colonoscopy, says that she was found to have diverticula, no history of diverticulitis. She does have an allergy to penicillin, no history of antibiotic resistance or immunocompromise. No history of abdominal surgeries. No recent contacts with similar symptoms. Physical exam remarkable for tenderness palpation of left lower quadrant. Abdomen is soft, nondistended, with normal active bowel sounds. No rigidity or guarding. Easy work of breathing, lung sounds clear bilaterally. Normal heart sounds. DDx includes but is not limited to: Diverticulitis, colitis, partial bowel obstruction, malignancy I independently interpreted the following tests: CBC notable for leukocytosis, white cell count 14.04. CMP, magnesium, lipase, and UA all reassuring. CT abdomen/pelvis significant for 6 cm long segment of moderate mid sigmoid colon wall thickening and adjacent associated inflammatory stranding, consistent with diverticulitis and/or colitis. However colonic carcinoma is also a consideration. No complications such as perforation or abscess noted. While in the emergency department Anu received IV fluids and Zofran; she has declined pain medication such as Tylenol or ibuprofen, says she is feeling comfortable. First dose of Flagyl and ciprofloxacin given. EKG performed to rule out QT prolongation, QTc 426. Abdominal discomfort today consistent with diverticulitis/colitis. Reviewed CT findings with patient, including possibility of carcinoma as cause of colonic thickening. Advise follow-up with PCP for reevaluation of diverticulitis symptoms and general surgery to discuss findings and further evaluation. Will treat with ciprofloxacin and metronidazole for 12 days. Advised clear liquid diet for bowel rest. Reviewed red flags indicate need for return to emergency care. Imaging Data Radiologic Study: Radiologist's impression: Radiologist impression of CT abdomen/pelvis 1. Sick centimeter long segment of moderate mid sigmoid colon wall thickening and adjacent associated inflammatory stranding, possibly diverticulitis and/or colitis. Alternate actively, colonic carcinoma a consideration. No perforation or abscess. Recommend further evaluation 2. 3.9 x 3.3 cm cystic structure within the right adnexa, possibly right ovarian cyst or peritoneal inclusion cyst. Recommend further evaluation with sonography on a nonurgent basis. ECG Data Interpretation: EKG reassuring, normal sinus rhythm rate 86. No QT prolongation. Quality:SDOH Health Related Social Needs: No Data to Display PFSH All Active Problems (Updated 10/03/23 @ 21:06 by Radha Christian) Diverticulitis (Chronic) Hyperplastic colon polyp (Acute ~03/21/23) x3 Screen for colon cancer (Acute) Elevated lipids (Acute 04/11/17) Postmenopausal atrophic vaginitis (Acute) Medical History (Updated 10/03/23 @ 21:06 by Radha Christian) Osteoarthritis Prediabetes Former smoker Pain in right lower leg Erythema Right lower leg History of blood clots Varicose veins of right lower extremity Depression (04/11/17) Neoplasm of unspecified behavior of bone, soft tissue, and skin Surgical History (Updated 03/22/23 @ 09:05 by Halima Mckeon) History of colonoscopy (~03/2023) History of vascular surgery hx of saphenous vein removal 11/22/22 meniscus repair R knee Ligation of fallopian tube Family History Father Essential hypertension Dementia Asthma Social History Smoking/Tobacco Use Status: Former Tobacco Use Quit Date: 06/17/02 Smoking risk assessment performed?: Yes Alcohol Intake: never Drug use: Never Substance use type: does not use Housing: house Number of Children: 3 number of grandchildren: 7 current occupation: [employer] Sexually active: Yes Do you think of yourself as: straight/heterosexual Current gender identity: female Do you feel safe at home: Yes Do you feel safe in your relationship?: Yes Female Reproductive History Menstrual Menopause type: natural History History 3 Para 3 Hx # Term Pregnancies Multiple births Hx # Pregnancies Ectopic pregnancies AB induced Hx Number of Living Children AB spontaneous
[2023-10-03 19:07] LABS: ALT 34 U/L (14-59); AST 21 U/L (15-37); Albumin 4.2 g/dL (3.4-5.0); Alkaline Phosphatase 136 U/L (46-116); Anion Gap 10.4 mmol/L (3-11); BUN 13 mg/dL (7-18); Bilirubin, Total 0.7 mg/dL (0.2-1.0); CO2 27.6 mmol/L (21.0-32.0); Calcium 9.4 mg/dL (8.5-10.1); Chloride 102 mmol/L (98-107); Glucose 145 mg/dL (74-106); Lipase 41 U/L (16-77); Magnesium 2.1 mg/dL (1.8-2.4); Potassium 3.5 mmol/L (3.5-5.1); Sodium 140 mmol/L (136-145); Total Protein 8.2 g/dL (6.4-8.2)
--- NOTE | 2023-10-03 19:57 | NUR.NOTE ---
report given to DAKSHA Liriano and care relinquished
[2023-10-03] MEDS: Normal Saline - Diluent 50 ML VIAL IJ (19:58)
[2023-10-03] MEDS: Omnipaque 350 MG/ML 100 ML BTL IJ (19:58)
[2023-10-03] MEDS: Normal Saline Flush 10 ML SYR IVP (20:00)
--- NOTE | 2023-10-03 20:15 | DI.CT_ITS ---
Exam(s) CT ABDOMEN PELVIS W EXAM: CT ABDOMEN PELVIS W CLINICAL HISTORY: LLQ pain. TECHNIQUE: Imaging Protocol: Axial computed tomography images with coronal and sagittal reformatted images were created and reviewed CONTRAST MATERIAL: Intravenous: Omnipaque 350 Contrast volume:100 ml Oral: / no COMPARISON: None FINDINGS: ABDOMEN and PELVIS: Lung Bases: No acute findings. Mild atelectasis Liver: Normal density. No measurable mass. Gallbladder and biliary tract: No radiodense calculus or biliary dilation. Pancreas: Normal density. No abnormal calcifications or inflammatory process. No evidence of mass. Spleen: Normal. Kidneys: Normal size, contour and axis. No radiodense stones. No obstructive uropathy. No suspicious masses seen. Adrenal glands: No masses seen. Vasculature: Abdominal aorta non-dilated. Mild atherosclerotic changes. Soft tissues: Unremarkable. Bladder: Well distended. No gross wall thickening. No calculi.No focal mass. Bowel: No obstruction. Diverticulosis of the descending and sigmoid colon. Area of wall thickening and inflammation in the proximal to mid sigmoid consistent with diverticulitis. Significant surroun ding inflammatory stranding. No evidence of perforation or abscess. There is a small amount of flui d in the low pelvis. Appendix normal. Peritoneal cavity: Small amount of fluid in pelvis. No focal collection. Bones: Unremarkable for age. Reproductive organs: 3.9 centimeter maximal dimension cyst of the right ovary. Smaller left ovarian cyst. Lymph nodes: Unremarkable. IMPRESSION:: Findings consistent with diverticulitis of the mid sigmoid. Bilateral ovarian cysts. Further evaluation with pelvic ultrasound could be obtained for further abelino luation. RADIATION DOSE DELIVERED: 787.33mGy.cm Total DLP DATA REPOSITORY: All CT scans at this facility are submitted to the National Radiology Data Registry (NRDR) Dose Index Registry (DIR) with the [employer] (ACR). RADIATION OPTIMIZATION: All CT scans at this facility use at least one of these dose optimization te chniques: automated exposure control; mA and/or kV adjustment per patient size (includes targeted exa ms where dose is matched to clinical indication); or iterative reconstruction.
[2023-10-03 20:26] LABS: Bilirubin Negative (Negative); Blood Negative (Negative); Clarity Clear (Clear); Glucose Negative (Negative); Ketones Negative (Negative); Leukocyte Esterase Trace (Negative); Nitrite Negative (Negative); Specific Gravity 1.015 (1.005-1.025); Urobilinogen 0.2 mg/dL (Up to 0.2)
[2023-10-03 20:30] LABS: Bacteria Rare HPF (Negative); C & S Indicated? Yes; Casts Negative LPF (Negative); Crystals Negative HPF (Negative); Epithelial Cells Rare HPF (Negative); Mucus Negative (Negative); RBC Negative HPF (0-2)
--- NOTE | 2023-10-03 20:34 | DI.VRAD_ITS ---
PROCEDURE INFORMATION: Exam: CT Abdomen And Pelvis With Contrast Exam date and time: 10/03/2023 8:04 PM Age: 63 years old Clinical indication: Abdominal pain; Other: Llq pain x today; Additional info: Worsening llq pain x today TECHNIQUE: Imaging protocol: Computed tomography of the abdomen and pelvis with contrast. Contrast material: OMNI 350; Contrast volume: 100 ml; Contrast route: INTRAVENOUS (IV); COMPARISON: CT CHEST LUNG CANCER SCREEN 10/12/2022 3:14 PM FINDINGS: Lungs: Mild lingular and bilateral posterior lower lobe atelectasis and/or scarring. Liver: Normal. Gallbladder and bile ducts: Normal. Pancreas: Normal. Spleen: Normal. Adrenal glands: Normal. No mass. Kidneys and ureters: Normal. Stomach and bowel: Small amount of pelvic free fluid, likely secondary to ongoing bowel pathology. Colonic diverticulosis. 6 cm long segment of moderate mid sigmoid colon wall thickening and adjacent associated inflammatory stranding, possibly diverticulitis and/or colitis. Alternatively, colonic carcinoma a consideration. No perforation or abscess. Appendix: Appendix normal. Intraperitoneal space: Unremarkable. No free air. No significant fluid collection. Vasculature: Atherosclerotic disease of the abdominal aorta and iliac arteries. Lymph nodes: Unremarkable. No enlarged lymph nodes. Urinary bladder: Unremarkable as visualized. Reproductive: 3.9 x 3.3 cm cystic structure within the right adnexa, possibly right ovarian cyst or peritoneal inclusion cyst. 15 mm cystic structure within the left adnexa, likely left ovarian cyst. Bones/joints: Mild degenerative changes of the hips and sacroiliac joints. Multilevel thoracolumbar spine degenerative disc space narrowing and osteophyte formation. Soft tissues: Normal. IMPRESSION: 1. 6 cm long segment of moderate mid sigmoid colon wall thickening and adjacent associated inflammatory stranding, possibly diverticulitis and/or colitis. Alternatively, colonic carcinoma a consideration. No perforation or abscess. Recommend further evaluation. 2. 3.9 x 3.3 cm cystic structure within the right adnexa, possibly right ovarian cyst or peritoneal inclusion cyst. Recommend further evaluation with sonography on a non urgent basis. Dictated and Authenticated by: Parvez Leigh MD. Ordering:ERASTO Garcia MD
--- NOTE | 2023-10-03 20:45 | RT.EKG_ITS ---
APPROVED REPORT Exam: Resting ECG Reason for Exam: r/o prolonged QTc prior to cipro Patient Location: E HR:86 bpm ECG Measurements Heart Rate 86 AXIS FL 183 P 25 QRSd 83 QRS 4 QT 356 T 56 QTc 426 Conclusion Sinus rhythm...normal P axis, V-rate 60- 99 Low voltage, precordial leads...precordial leads <1.0mV
[2023-10-03] MEDS: Ciprofloxacin 500 MG TAB PO ×2 (21:11)
[2023-10-03] MEDS: metroNIDAZOLE 500 MG TAB PO ×2 (21:11→21:12)
[2023-10-03 21:16] VITALS: BP 163/92; PULSE 85
[2023-10-03 21:31] VITALS: BP 166/91; PULSE 91; RESP 16; O2SAT 97
== END 2023-10-03 21:31 | disposition home or self-care (01) ==
LOC: ER 21:21
PROVIDERS: Emergency Provider Nurse Practitioner Family; PCP Physician Assistant
DX: K57.32 Diverticulitis of large intestine without perforation or abscess without bleeding (principal); Z87.891 Personal history of nicotine dependence
CPT/HCPCS: 36415; 80053; 83690; 93005; 96361; 96374; 99285; 74177; 81003; 81015; 83735; 85025; 87086; 93010; 99284; J2405; J3490

== ENCOUNTER 2024-06-19 14:38 | Emergency (ER) | payer OTHER, SELFPAY ==
[2024-06-19] VITALS (57 sets, daily range): BP systolic 135–195; BP diastolic 67–99; PULSE 65–74; RESP 11–28; TEMP 36.6–36.9; O2SAT 92–98
--- NOTE | 2024-06-19 14:30 | RT.EKG_ITS ---
APPROVED REPORT Exam: Resting ECG Reason for Exam: hypertension Patient Location: E HR:75 bpm ECG Measurements Heart Rate 75 AXIS MO 176 P 43 QRSd 84 QRS 0 QT 398 T 40 QTc 444 Conclusion Sinus rhythm...normal P axis, V-rate 60- 99 Inferior infarct, old...Q >35mS, II III aVF
--- NOTE | 2024-06-19 15:00 | DI.RAD_ITS ---
Exam(s) XR CHEST 2V PA LATERAL EXAM: XR CHEST 2V PA LATERAL CLINICAL HISTORY: hypertension TECHNIQUE: 2D digital imaging was performed. Two views. COMPARISON: CT CT CHEST LUNG CANCER SCREEN from 10/12/2022 FINDINGS: HEART: Normal size. Aorta: Not dilated. PULMONARY VASCULATURE: Normal. MEDIASTINUM: Unremarkable. LUNGS: Clear. PLEURAL SPACE: No pleural effusion or pneumothorax. BONE:Degenerative changes in the mid thoracic spine the central weight orozco of the thoracic kyphosis. SOFT TISSUES: Unremarkable. IMPRESSION: No acute abnormality. DATA REPOSITORY: RADIATION DOSE DELIVERED:
--- NOTE | 2024-06-19 15:05 | ED.GENADUL_ITS ---
Discharge Plan Discharge Details Chief Complaint: [facility] Primary Care Provider: Tyler Galindo ED Provider: Chirag Frye Home Meds and New Rx's Prescriptions: No Action psyllium husk 2.6 gram/4.1 gram powder 1 tbsp PO DAILY Rx Instructions: mix into at least 8 oz of water or juice before administering atorvastatin 10 mg tablet 20 mg PO QPM alendronate 70 mg tablet 70 mg PO .weekly HPI General Date/Time Provider Initiated Documentation: 06/19/24 15:05 . HPI Narrative: Mrs. Pena is a 63-year-old lady who was sent to the emergency department for evaluation of hypertension. She states she took her blood pressure last night after having had a discussion with family members regarding their blood pressures and found herself to be in the 150s over 95. 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 She carried over. Normal activities at work and before going home she had a blood pressure retaken at that time her systolic was in the 190s. She called her primary care doctor to be seen and upon arriving home she had a message telling her to go to the emergency department. She states she woke up with a mild headache otherwise has not had any significant headaches. No chest pain. No shortness of breath. No weight gain or weight loss. States that the only other time she had hypotension was when she had acute diverticulitis back in September. Related Data Home Medications ?Medication ?Instructions ?Recorded ?Confirmed atorvastatin 10 mg tablet 20 mg PO QPM 11/22/22 06/19/24 alendronate 70 mg tablet 70 mg PO .weekly 10/03/23 06/19/24 psyllium husk 2.6 gram/4.1 gram 1 tbsp PO DAILY 12/17/23 06/19/24 oral powder Allergies Allergy/AdvReac Type Severity Reaction Status Date / Time Penicillins Allergy hives Verified 06/19/24 14:50 General Stated Complaint: GenMedical ELISSA: 3 Review of Systems Narrative: 10 point review of system is negative as otherwise specified in the HPI Exam Narrative Exam Narrative: General: A,A Ox3, Calm, no apparent distress, well developed, pleasant and cooperative Head Size/Shape: normocephalic, atraumatic Eyes Pupils: PERRLA Extraocular Mobility: intact and symmetrical Conjunctiva: non-injected, anicteric, no discharge Ears, Nose, Throat Nares: patent bilaterally Oral Cavity: moist Neck: no JVD Respiratory Respiratory Effort: no dyspnea Auscultation: clear to auscultation bilaterally, normal breath sounds, no wheezing, no rales/crackles Cardiovascular Heart Auscultation: regular rate and rhythm, normal S1, normal S2, no murmurs, no rubs, no gallops, Pulse Quality: +2 equal bilaterally, location(s) radial Abdomen Inspection and Palpation: soft, non-tender, non-distended, no hepatosplenomegaly Musculoskeletal System Joints, Bones, and Muscles: no deformities Extremities: warm and well-perfused, no cyanosis, capillary refill <2 seconds Skin Skin Inspection: no rash, no lesions, no bruising Neurological Motor: normal tone, normal strength, moving all extremities equally Psychiatric: good insight, good judgement, normal mood and affect, albiet a bit anxious Course Case discussed with Dr. Galindo her PCP. Workup is negative he would like the patient to be sent home on low-dose bisoprolol 5 mg daily and he he will follow- up with the patient next week Vital Signs Vital signs: Vital Signs Temperature 36.9 C 06/19/24 14:46 Pulse 74 06/19/24 14:46 Respiratory Rate 12 06/19/24 14:46 Blood Pressure 195/99 H 06/19/24 14:46 Pulse Oximetry 96 06/19/24 14:46 Temperature 36.9 C 06/19/24 14:46 Temperature Source Oral 06/19/24 14:46 Pulse 74 06/19/24 14:46 Respiratory Rate 12 06/19/24 14:46 Blood Pressure 195/99 H 06/19/24 14:46 Blood Pressure Position Sitting 06/19/24 14:46 Pulse Oximetry 96 06/19/24 14:46 Oxygen Delivery Method Room Air 06/19/24 14:46 Oxygen Flow Rate 0 06/19/24 14:46 Pain Level 4 06/19/24 14:46 Medical Decision Making 63-year-old lady appears to be new onset hypertension. EKG in the emergency department reveals a normal sinus rhythm at 75. No signs of ischemia. Normal intervals Quality:SDOH Health Related Social Needs: Health related social needs inadequate housing (Z59.1) PFSH All Active Problems (Updated 12/17/23 @ 14:02 by Cooper Castro MD) Diverticulosis (Acute) Neck strain (Acute) Hyperplastic colon polyp (Acute ~03/21/23) x3 Screen for colon cancer (Acute) Elevated lipids (Acute 04/11/17) Postmenopausal atrophic vaginitis (Acute) Medical History (Updated 12/17/23 @ 14:02 by Cooper Castro MD) Osteoarthritis Prediabetes Former smoker Pain in right lower leg Erythema Right lower leg History of blood clots Varicose veins of right lower extremity Depression (04/11/17) Neoplasm of unspecified behavior of bone, soft tissue, and skin Surgical History (Updated 03/22/23 @ 09:05 by Halima Mckeon) History of colonoscopy (~03/2023) History of vascular surgery hx of saphenous vein removal 11/22/22 meniscus repair R knee Ligation of fallopian tube Family History Father Essential hypertension Dementia Asthma Social History Smoking/Tobacco Use Status: Former Tobacco Use Quit Date: 06/17/02 Smoking risk assessment performed?: Yes Alcohol Intake: never Drug use: Never Substance use type: does not use Housing: house Number of Children: 3 number of grandchildren: 7 current occupation: [employer] Sexually active: Yes Do you think of yourself as: straight/heterosexual Current gender identity: female Do you feel safe at home: Yes Do you feel safe in your relationship?: Yes Female Reproductive History Menstrual Menopause type: natural History History 3 Para 3 Hx # Term Pregnancies Multiple births Hx # Pregnancies Ectopic pregnancies AB induced Hx Number of Living Children AB spontaneous
[2024-06-19 15:25] LABS: Abs Immature Grans 0.03 10^3/uL (0.0-0.06); Absolute Basophil Count 0.06 10^3/uL (0.0-0.2); Absolute Eosinophil Count 0.18 10^3/uL (0.0-0.7); Absolute Lymphocyte Count 2.94 10^3/uL (1.2-3.4); Absolute Monocyte Count 0.62 10^3/uL (0.1-0.8); Absolute Neutrophil Count 5.67 10^3/uL (1.2-6.7); Basophils % 0.6 %; Eosinophils % 1.9 %; HCT 40.8 % (36.0-46.0); HGB 14.1 g/dL (11.2-15.7); Immature Grans % 0.3 %; Lymphocytes % 30.9 %; MCH 30.7 pg (27.0-33.0); MCHC 34.6 % (32.0-36.0); MCV 89 fL (80-95); MPV 9.9 fL (8.0-11.0); Monocytes % 6.5 %; Neutrophils % 59.8 %; Platelet Count 230 10^3/uL (130-400); RDW 13.2 % (11.7-14.6); RDW-SD 42.8 fL
[2024-06-19 15:37] LABS: ALT 48 U/L (14-59); AST 28 U/L (15-37); Albumin 4.3 g/dL (3.4-5.0); Alkaline Phosphatase 116 U/L (46-116); Anion Gap 7.3 mmol/L (3-11); BUN 12 mg/dL (7-18); Bilirubin, Total 0.58 mg/dL (0.2-1.0); CO2 30.7 mmol/L (21.0-32.0); CREATININE 0.8 mg/dL (0.55-1.02); Calcium 9.7 mg/dL (8.5-10.1); Chloride 104 mmol/L (98-107); Estimated GFR 82.74 (mL/min/1.73m2); Glucose 85 mg/dL (74-106); Magnesium 2.2 mg/dL (1.8-2.4); Potassium 3.5 mmol/L (3.5-5.1); Sodium 142 mmol/L (136-145); Total Protein 8.1 g/dL (6.4-8.2)
[2024-06-19] MEDS: Acetaminophen 325 MG TAB 650 MG PO (15:38)
[2024-06-19 15:40] LABS: Troponin I < 4 ng/L (<or=51)
[2024-06-19] MEDS: Bisoprolol 5 MG TAB PO (16:36)
--- NOTE | 2024-06-20 07:40 | NUR.NOTE ---
Access chart to reconcile EKG orders with EKG's in [facility]. Duplicate order cancelled. Nursing Note:
== END 2024-06-19 16:50 | disposition home or self-care (01) ==
PROVIDERS: Emergency Provider Emergency Medicine; PCP Physician Assistant
DX: R51.9 Headache, unspecified (principal); I10 Essential (primary) hypertension; Z59.10 Inadequate housing, unspecified; Z87.891 Personal history of nicotine dependence
CPT/HCPCS: 36415; 80053; 93005; 99284; 71046; 83735; 84484; 85025; 93010

== ENCOUNTER 2024-08-04 02:38 | Outpatient (CLI) | payer OTHER, SELFPAY ==
--- NOTE | 2024-08-04 13:00 | DI.MAMMO_ITS ---
Exam(s) MAMMO SCREENING EXAM: MAMMO SCREENING CLINICAL HISTORY: Screening, Z12.31 TECHNIQUE: Bilateral full field digital CC and MLO mammographic images were obtained with 3D tomosyn thesis and utilizing computer aided detection (CAD). COMPARISON: Available for comparison. FINDINGS: Masses/Architectural Distortion: None seen. Microcalcifications: No suspicious pleomorphic-type are seen. Skin Thickening/Nipple Retraction: None. IMPRESSION: 1. No significant interval change with no specific features of malignancy noted. 2. Unless there is more urgent need, screening mammography is recommended, as per [employer] guidelines. BI-RADS Category 1 - Negative Breast Density - Category B - Scattered areas of fibroglandular density Breast density category C or D implies that the patient has dense breast tissue. Dense breast tissue is very common and is not abnormal but dense breast tissue can make it harder to find cancer on a ma mmogram. Also, dense breast tissue may increase their breast cancer risk. This information about the result of the mammogram report was provided to the patient to raise their awareness. Use this report when you speak with the patient about their risks for breast cancer, which includes their family hist ory. At that time, you may recommend for more screening tests (Ultrasound or MRI) as they might be us eful based on their risk. A negative radiographic report should not delay biopsy if a dominant or clinically suspicious mass is present. Up to ten percent of cancers are not identified on mammography. A negative report may reinforce clinical impression. Adenosis and dense breasts may obscure an underlying neoplasm. False positive reports average 6 to 10%. Patient will receive a letter notifying them of these results.
--- NOTE | 2024-08-04 13:18 | DI.CTLCSR_ITS ---
Exam(s) CT CHEST LUNG CANCER SCREEN EXAM: CT CHEST LUNG CANCER SCREEN CLINICAL HISTORY: Personal h/o nicotine dependence, Z87.891; screening TECHNIQUE: Imaging Protocol: Axial computed tomography images with coronal and sagittal reformatted images were created and reviewed. Lung Computer Aided Detection (CAD) was utilized. COMPARISON: CT CT CHEST LUNG CANCER SCREEN from 10/12/2022 FINDINGS: Tracheobronchial tree: Patent where visualized. No bronchiectasis. Pulmonary parenchyma: Moderate centrilobular emphysematous changes are present. No focal consolidati ng infiltrates. There has been no change in size of the 6 mm nodule abutting the fissure in the righ t upper lobe (series 2, image 48). Lung Nodules: No new nodules are present. Mediastinum and Padmini: No dominant adenopathy or fluid collection. The esophagus is unremarkable. Thyroid gland: Unremarkable. Lymph nodes: Unremarkable. Pleura: No effusion or pneumothorax. Heart: The heart is not dilated. Coronary artery calcification is present. No pericardial effusion. Aorta: Thoracic aorta non-dilated.Atherosclerotic calcification is present. Upper abdomen: Unremarkable. Soft Tissues: Unremarkable. Bones: Within normal limits. IMPRESSION: Stable pulmonary perifissural nodule. No new nodules. Lung RADS Cat 2 - Benign Appearance / Behavior: Nodules with a very low likelihood of becoming a clin ically active cancer due to size or lack of growth Lung-RADS 1.0 CATEGORIES: Category 0 - Prior chest CT exam(s) being located for comparison. Category 1 - Annual screening in 12 months. No nodules or definitely benign nodules. Category 2 - Annual screening in 12 months. Benign appearance. Nodules with low likelihood of becomin g active cancer. Category 3 - 6-month follow-up. Probably benign. Short-term follow-up suggested. Nodules with low lik elihood of becoming active cancer. Category 4A - 3-month follow-up and CT/PET if >8 mm in size. Suspicious finding. Findings which requi re additional testing. Category 4B - Findings which require additional testing and tissue sampling. Suspicious finding. Category 4X - Category 3 or 4 nodules with additional features or imaging findings that increases the suspicion of malignancy. Modifier S- Potentially clinically significant finding. (Non lung cancer) RADIATION DOSE DELIVERED: 25.62mGy.cm Total DLP 25.62mGy.cmTotal DLP DATA REPOSITORY: All CT scans at this facility are submitted to the National Radiology Data Registry (NRDR) Dose Index Registry (DIR) with the [employer] ([employer]). RADIATION OPTIMIZATION: All CT scans at this facility use at least one of these dose optimization te chniques: automated exposure control; mA and/or kV adjustment per patient size (includes targeted exa ms where dose is matched to clinical indication); or iterative reconstruction.
== END 2024-08-04 02:58 ==
LOC: DI 02:38
PROVIDERS: PCP Physician Assistant; Visit Provider Physician Assistant
DX: Z12.31 Encounter for screening mammogram for malignant neoplasm of breast (principal); Z87.891 Personal history of nicotine dependence; F17.210 Nicotine dependence, cigarettes, uncomplicated; R92.323 Mammographic fibroglandular density, bilateral breasts
CPT/HCPCS: 71271; 77063; 77067

== ENCOUNTER 2025-04-19 12:14 | Outpatient (CLI) | payer OTHER, SELFPAY ==
--- NOTE | 2025-04-19 11:30 | DI.RAD_ITS ---
Exam(s) XR KNEE LT 4V AP,LAT,CHRISTY,PAT EXAM: XR KNEE LT 4V AP,LAT,CHRISTY,PAT CLINICAL HISTORY: LEFT KNEE PAIN. TECHNIQUE: 2D digital imaging was performed of the left knee. Four images were obtained. Merchant,AP, lateral and PA tunnel views were obtained. COMPARISON: There are no priors for comparison. FINDINGS: BONES: No acute fracture is present. No bony destructive lesion is seen. There is an enthesophyte at the superior patella. JOINTS: The knee is normally aligned. There is a small joint effusion. No loose body. SOFT TISSUE: Normal. IMPRESSION: Small joint effusion. DATA REPOSITORY: RADIATION DOSE DELIVERED:
== END 2025-04-19 12:15 | disposition home or self-care (01) ==
LOC: DIORS 12:15
PROVIDERS: PCP Physician Assistant; Visit Provider Student in an Organized Health Care Education/Training Program
DX: M25.562 Pain in left knee (principal); M25.462 Effusion, left knee
CPT/HCPCS: 73564